=== PATIENT | female | born 1995 | race African-American/Black ===

== ENCOUNTER 2020-01-18 13:03 | Emergency (ER) | payer SELFPAY ==
[~2020-01-18] VITALS: Ht 165.1 cm; Wt 70.4 kg
[~2020-01-18 13:03] MED LIST: BACTRIM DS1 TAB PO; LORTAB 10 PO; NO HOME MEDS; PYRIDIUM200 MG OR
[2020-01-18 14:09] VITALS: BP 119/70
[2020-01-18] MEDS ORDERED: NAPROXEN500 MG PO (14:10)
[2020-01-18] MEDS ORDERED: AMOXICILLIN500 MG PO (14:10)
== END 2020-01-18 14:15 | disposition home or self-care (01) | DRG 605 ==
LOC: ED 13:03
PROC: 0HDRXZZ Extraction of Toe Nail, External Approach (ICD-10-PCS; principal; 2020-01-18)
DX: S91.202A Unspecified open wound of left great toe with damage to nail, initial encounter (principal); W22.8XXA Striking against or struck by other objects, initial encounter; Y93.89 Activity, other specified